=== PATIENT | male | born 1930 | race Caucasian/White ===

== ENCOUNTER 2019-05-04 10:58 | Emergency (ER) | payer MEDICARE ==
[~2019-05-04] VITALS: Ht 162.6 cm; Wt 54.9 kg
[2019-05-04 11:03] VITALS: Ht 162.6 cm; Wt 54.9 kg
[2019-05-04 11:41] LABS: BASOPHIL % 0.5 % (0-2); PLATELET COUNT 246 x10^3mcL (130-400); RED CELL DISTRIBUTION WIDTH 12.8 % (11.5-14.5)
[2019-05-04 11:52] LABS: microscopic required? NO
[2019-05-04 11:56] LABS: CARBON DIOXIDE 29.1 mmol/L (21-32); CHLORIDE SERUM 106 mmol/L (98-107); GLUCOSE SERUM 87 mg/dL (74-106); POTASSIUM SERUM 4.8 mmol/L (3.5-5.1); SODIUM SERUM 142 mmol/L (136-145)
[2019-05-04 12:06] LABS: UA SPECIFIC GRAVITY 1.015 (1.005-1.035); urine erythrocyte NEGATIVE (NEGATIVE)
[2019-05-04 12:10] LABS: FREE T4 0.89 ng/dL (0.76-1.46)
[2019-05-04 14:06] VITALS: BP 124/72
== END 2019-05-04 15:03 | disposition short-term general hospital (02) ==
LOC: ED 10:58
PROVIDERS: Emergency Medicine
DX: G51.0 Bell's palsy (principal)
CPT/HCPCS: 36415; 84439; J7512; Q0092